=== PATIENT | female | born 1990 | race Caucasian/White ===

== ENCOUNTER 2016-06-20 20:47 | Inpatient (IN) | payer MEDICAID ==
--- NOTE | 2016-06-21 00:02 | OBADHP ---
Datetime: 06/20/2016 23:49 IP Chief Complaint Other: 25 year old P3 at 38 weeks Gestation presents complaining Admit Comment, IP Provider: Early active Labor. Non-compliant with care. Treated for Gonorr hea and Chlamydia this . Admit for labor protocol. Penicillin for GBS prophylaxis. Pelvic Type - PN: Adequate Extremities - PN: Normal Abdomen - PN: Normal Back - PN: Normal Breast - PN: Not Done Lungs - PN: Normal Heart - PN: Normal Thyroid - PN: Not Done Neurologic - PN: Not Done HEENT - PN: Not Done General - PN: Normal Weight - Estimated: 3000 Presentation-Admit: Vertex FHR - Baseline A Provider: 150 Membranes, Provider: Intact Contraction Comments Provider: Q 5min. Gestation - Est Wks by US: 38.0 IP Hx Assessment: The History has been Updated Vital Signs Provider: Reviewed; Within Normal Limits IP Chief Complaint: Uterine contractions NICHD Variability Prov Fetus A: Moderate 6-25bpm NICHD Accel Fetus A IP Provider: [id number] FHR Category Provider Fetus A: Category I NICHD Decel Fetus A IP Provider: None Dilatation, Provider: 3 Effacement, Provider: 50 Station, Provider: -2 Genitourinary Exam: Normal DTRs - PN: Normal EGA AdmitDate IP: 38.0 IP Adm Impression: Term, intrauterine ; Active labor; Intact Membranes IP Admit Plan: Admit to unit; Initiate labor protocol Datetime: 06/20/2016 21:08 IP Admit Plan Other: Reevaluate for Labor in 2 hours Datetime: 05/15/2016 19:49 Comments, ACOG Physical Exam: Skin: warm, dry, intact. (+) multiple tattooes on arms bilaterally HEENT: full rOM Back: no CVA nor low back tenderness. (+) pain in right gluteus - mid region. Lungs: CTA bilaterally Cardiac: RRR, normal S1, S2 Abdomen: gravid. Soft. No suprapubic tenderness : no urethral masses or dischare Extremities: no calf tenderness, cyanosis or edema all other systems reviewed and are as per HPI
[2016-06-21] MEDS ORDERED: Penicillin G 5 Million Unit Vial IVPB ONE ×2 (00:03→00:25)
[2016-06-21 00:04] VITALS: BMI 29.7
[2016-06-21] MEDS ORDERED: Lactated Ringer's 1,000 ML IV SCH ×2 (00:15→22:45)
[2016-06-21] MEDS ORDERED: Nalbuphine 20 mg/ml Inj (1 ml) IVP PRN ×2 (00:15→08:30)
[2016-06-21] MEDS ORDERED: Nalbuphine 20 mg/ml Inj (1 ml) ONE (00:34)
[2016-06-21 00:41] LABS: BASO # 0.1 K/uL (0.0-0.2); BASO % 0.7 % (0.0-2.0); EOS # 0.2 K/uL (0.0-0.7); EOS % 1.7 % (0.0-4.0); HEMATOCRIT 29.4 % (34.0-47.0); LYMPH # 3.1 K/uL (1.0-4.3); LYMPH % 26.3 % (20.0-40.0); MEAN CELL VOLUME 69.8 fL (81.0-99.0); MEAN CORPUSCULAR HEMOGLOBIN 21.9 pg (27.0-31.0); MEAN CORPUSCULAR HGB CONC 31.4 g/dL (33.0-37.0); MONO # 0.9 K/uL (0.0-0.8); MONO % 7.8 % (0.0-10.0); RED CELL DISTRIBUTION WIDTH 16.1 % (11.5-14.5); WHITE BLOOD COUNT 11.7 K/uL (4.8-10.8)
[2016-06-21 00:52] LABS: RBC URINE 2 /hpf (0-3); URINE BACTERIA OCC (<OCC); URINE BILIRUBIN NEGATIVE (NEGATIVE); URINE BLOOD NEGATIVE (NEGATIVE); URINE COLOR Yellow (YELLOW); URINE GLUCOSE (UA) NORMAL (Normal); URINE KETONE TRACE mg/dL (NEGATIVE); URINE LEUKOCYTE ESTERASE NEG Leu/uL (Negative); URINE PROTEIN 1+ mg/dL (NEGATIVE); URINE UROBILINOGEN NORMAL mg/dL (0.2-1.0); WBC URINE 2 /hpf (0-5)
[2016-06-21 00:53] LABS: GFR AFRICAN-AMERICAN > 60
[2016-06-21 00:54] LABS: GLUCOSE,RANDOM 99 mg/dL (65-105)
[2016-06-21] MEDS ORDERED: Oxytocin 30 UNIT 500 ML IV ONE (05:43)
[2016-06-21] MEDS ORDERED: Oxytocin 30 UNIT 500 ML IV SCH (05:45)
--- NOTE | 2016-06-21 05:49 | OBPN ---
Datetime: 06/21/2016 05:45 IP Progress Impression: Arrest of dilatation/descent; Reassuring heart rate IP Informed Consent Obtain: Vaginal Delivery; Risks, Benefits and Alternatives Discussed IP Procedures: Sterile Vag Exam IP Progress Plan: Augmentation; Antibiotic therapy Membranes, Provider: Intact Contraction Comments Provider: Q3-5min. FHR - Baseline A Provider: 140 Gestation - Est Wks by US: 38.0 Weight - Estimated: 3000 Presentation-Admit: Vertex IP Progress Note Comment: Protracted Latent Phase. Reassuring Status. Will augment Labor with Pitocin. Vital Signs Provider: Reviewed; Within Normal Limits FHR Category Provider Fetus A: Category I NICHD Variability Prov Fetus A: Moderate 6-25bpm Dilatation, Provider: 3 Effacement, Provider: 50 Station, Provider: -2 NICHD Decel Fetus A IP Provider: None Datetime: 06/20/2016 23:49 NICHD Accel Fetus A IP Provider: [id number]
--- NOTE | 2016-06-21 17:54 | OBPN ---
Datetime: 06/21/2016 17:47 IP Progress Impression: Reassuring heart rate IP Informed Consent Obtain: Vaginal Delivery; Risks, Benefits and Alternatives Discussed IP Procedures: Sterile Vag Exam IP Progress Plan: Augmentation; Anticipate Vaginal Delivery Membranes, Provider: Intact FHR - Baseline A Provider: 140 Gestation - Est Wks by US: 38.0 Weight - Estimated: 3000 Presentation-Admit: Transverse IP Progress Note Comment: Protracted Latent Phase. Continue augmentation . Anticipate Vital Signs Provider: Reviewed; Within Normal Limits FHR Category Provider Fetus A: Category I NICHD Variability Prov Fetus A: Moderate 6-25bpm Dilatation, Provider: 3 Effacement, Provider: 50 Station, Provider: -2 NICHD Decel Fetus A IP Provider: None
[2016-06-21] MEDS ORDERED: Sodium Citrate/Citric Acid 15 ml Sol PO ONE (20:59)
[2016-06-21] MEDS ORDERED: cefOXitin IV 2 gm in Dextrose 50 ML IVPB ONE ×2 (20:59→21:05)
[2016-06-21] MEDS ORDERED: Sodium Citrate/Citric Acid 15 ml Sol ONE (21:04)
--- NOTE | 2016-06-21 21:14 | OBPN ---
Datetime: 06/21/2016 21:07 IP Progress Impression: Arrest of dilatation/descent; Reassuring heart rate IP Informed Consent Obtain: Section Delivery; Risks, Benefits and Alternatives Discussed IP Procedures: Sterile Vag Exam IP Progress Plan: Deliver- Section Membranes, Provider: Intact FHR - Baseline A Provider: 150 Gestation - Est Wks by US: 38.0 Weight - Estimated: 3000 Presentation-Admit: Vertex IP Progress Note Comment: Protracted Latent Phasee. Reassuring Status. Option given to patient to go home but declined and requested Section. Risks of injuries to bowel, bladder and risk of subsequent repeat C/Sections discussed. Vital Signs Provider: Reviewed; Within Normal Limits FHR Category Provider Fetus A: Category I NICHD Variability Prov Fetus A: Moderate 6-25bpm Dilatation, Provider: 3 Effacement, Provider: 50 Station, Provider: -2 NICHD Decel Fetus A IP Provider: None
[2016-06-21] MEDS ORDERED: Oxytocin 10 Units/ml Inj ONE (21:36)
[2016-06-21] MEDS ORDERED: Morphine 1 mg/ml preservative-free Inj(Duramorph) ONE (21:39)
[2016-06-21] MEDS ORDERED: Morphine 4 MG/ML VIAL IVP PRN (22:22)
[2016-06-21] MEDS ORDERED: DiphenhydrAMINE 50 mg/ml Inj IVP PRN (22:24)
--- NOTE | 2016-06-21 22:53 | OBDS ---
DELIVERY PERSONNEL Delivery Doctor: Hiro Jesus MD Scrub Nurse: Lolita Barboza OBT Assembly Repairer: Elza Cabrera RN Anesthesiologist: May Allen MD MATERNAL INFORMATION Delivery Anesthesia: Spinal Medications in Delivery: PITOCIN Estimated Blood Loss (ml): 500 Maternal Complications: None RN Comments: LIVE BABY BOY 9/9 Provider Comments: Primary LTC/S with delivery of a viable boy, 's /9 LABOR SUMMARY EDC: 07/04/2016 00:00 No. Babies in Womb: 1 LABOR INFORMATION Cervical Ripening Agents: Cytotec @ 50 mcg Group B Beta Strep: Not Done STAGES OF LABOR Stage 3 hrs: 0 Stage 3 min: 1 VAGINAL DELIVERY Episiotomy: None Laceration Extension: N/A Laceration Type: None CSECTION DELIVERY Primary Indication: Arrest of Dilatation CSection Urgency: Elective CSection Incidence: Primary Labor: Labor Elective: Elective CSection Incision: Lower Uterine Transverse BABY A INFORMATION Infant Delivery Date/Time: 06/21/2016 22:02 Method of Delivery: Born in Route : No : N/A Forceps: N/A Vacuum Extraction: N/A Shoulder Dystocia : No SHOULDER DYSTOCIA BABY A Delivery Date/Time: 06/21/2016 22:02 PRESENTATION/POSITION BABY A Presentation: Cephalic Cephalic Presentation: Vertex Vertex Position: Left Occipital Anterior Breech Presentation: N/A PLACENTA INFORMATION BABY A Placenta Delivery Time : 06/21/2016 22:03 Placenta Method of Delivery: Manual Removal Placenta Status: Delivered SCORES BABY A Heart Rate 1 min: >100 bpm Resp Effort 1 min: Good Cry Reflex Irritability 1 min: Cough or Sneeze or Pulls Away Muscle Tone 1 min: Active Motion Color 1 min: Body [place], Extremities Blue Resuscitation Effort 1 min: Tactile Stimulation SCORE 1 MIN: 9 Heart Rate 5 min: >100 bpm Resp Effort 5 min: Good Cry Reflex Irritability 5 min: Cough or Sneeze or Pulls Away Muscle Tone 5 min: Active Motion Color 5 min: Body [place], Extremities Blue SCORE 5 MIN: 9 INFANT INFORMATION BABY A Gestational Age at Delivery: 38.1 Gestational Status: Term Outcome : Liveborn Condition : Stable Sex: Male IDENTIFICATION/MEDS BABY A ID Band Number: [id number] ID Band Location: Left Leg; Left Arm Sensor Applied: Yes Sensor Number: [id number] Sensor Location : Cord Clamp Vitamin K Given : Aquamephyton 1 mg IM; Left Thigh Erythromycin Given: Given Both Eyes WEIGHT/LENGTH BABY A Infant Birthweight (gms): 3145 Weight (lb): 6 Weight (oz): 15 Length Inches: 19.00 Infant Length cms: 48.3 CORD INFORMATION BABY A No. Cord Vessels: 3 Nuchal Cord : N/A Cord Blood Taken: Yes Infant Suction: Mouth; Nose ASSESSMENT BABY A Complications: None Physical Findings at Delivery: Within Normal Limits Infant Respirations: Appears Normal Svp/ALS Called : No Infant Care By: Dr Queen/CLAUDIO RN Transferred To: [facility]
--- NOTE | 2016-06-22 08:13 | OP ---
PROCEDURE DATE: 06/21/2016 PREOPERATIVE DIAGNOSES: A 38-week gestation, arrest of dilatation. POSTOPERATIVE DIAGNOSES: A 38-week gestation, arrest of dilatation. PROCEDURE: Primary low transverse section. SURGEON: Bryan Jesus MD. THEATRICAL VARIETY AGENT: Dr. Lorenzo who was required for retraction and assistance in delivery of the fetus and who was present throughout the entire procedure. ANESTHESIA: Spinal given by Dr. Allen. FINDINGS: A viable boy delivered at 22:02. scores were 9 at 1 minute and 9 at 5 minutes. The weight was 3145 grams. The ovaries, fallopian tubes, and uterus were all normal. DESCRIPTION OF PROCEDURE: Under adequate spinal anesthesia, a Pfannenstiel skin incision was made with a scalpel and carried through the subcutaneous tissues to the fascia. The fascia was divided transversely and dissected off the underlying rectus muscle. The rectus muscle was in the midline. The retroperitoneum was entered sharply, and the abdomen was entered. The bladder was retracted using a Coyote retractor. The lower segment was incised with a scalpel and extended with bandage scissors. The fetus was delivered cephalic. The cord was clamped, transected, and the baby handed over to the program manager slp in attendance. The placenta was delivered spontaneously. The uterus was then delivered into the incision. The uterine cavity was cleaned of all debris with laparotomy sponges. The uterine incision was grasped with T clamps for hemostasis. The uterine incision was then approximated with 0 Vicryl suture in 2 layers. Hemostasis was achieved. The abdomen was then copiously irrigated with saline. The uterus was then returned into the abdominal cavity. Again, hemostasis was noted. The parietoperitoneum was then approximated with 0 chromic catgut. The fascia was approximated with 0 Vicryl suture in a continuous fashion. The subcutaneous tissues were approximated with 2-0 plain catgut. The skin was closed using 4-0 Biosyn subcuticular suture. ESTIMATED BLOOD LOSS: The estimated blood loss was about 500 mL. FLUIDS: Fluids received were 1500 mL crystallized. The urine output was about 300 clear. The sponge, instrument, and needle counts were correct x 3. The patient was transferred from the operating room to the recovery room in good condition. Bryan Jesus MD cc: [id number] TT: 06/22/2016 08:13:15 jn MTDD
[2016-06-22 08:15] LABS: HEMATOCRIT 26.6 % (34.0-47.0); MEAN CELL VOLUME 69.6 fL (81.0-99.0); MEAN CORPUSCULAR HEMOGLOBIN 21.9 pg (27.0-31.0); MEAN CORPUSCULAR HGB CONC 31.4 g/dL (33.0-37.0); MEAN PLATELET VOLUME 8.8 fL (7.2-11.7); RED CELL DISTRIBUTION WIDTH 15.9 % (11.5-14.5); WHITE BLOOD COUNT 13.5 K/uL (4.8-10.8)
[2016-06-22] MEDS: Prenatal Multivit/Folic Acid/Iron Tab PO SCH (10:30)
[2016-06-22] MEDS: Enoxaparin 40 mg Syringe SC SCH (10:31)
[2016-06-22] MEDS: Simethicone 80 mg Chewtab PO SCH ×4 (10:31→21:43)
[2016-06-22] MEDS: Oxycodone/Acetaminophen 5/325 mg Tab PO PRN ×3 (12:19→23:20)
[2016-06-22] MEDS ORDERED: Bisacodyl 5mg EC Tab PO ONE ×2 (22:00→22:45)
[2016-06-23] MEDS: Oxycodone/Acetaminophen 5/325 mg Tab PO PRN ×3 (07:24→19:39)
[2016-06-23] MEDS: Enoxaparin 40 mg Syringe SC SCH (09:13)
[2016-06-23] MEDS: Simethicone 80 mg Chewtab PO SCH ×4 (09:15→21:55)
[2016-06-23] MEDS: Prenatal Multivit/Folic Acid/Iron Tab PO SCH (09:15)
[2016-06-23 16:04] VITALS: RESP 20; O2SAT 99
[2016-06-24 00:03] VITALS: BP 103/67; PULSE 73; TEMP 98.3
[2016-06-24] MEDS: Oxycodone/Acetaminophen 5/325 mg Tab PO PRN ×2 (02:53→08:58)
[2016-06-24] MEDS: Enoxaparin 40 mg Syringe SC SCH (09:07)
[2016-06-24] MEDS: Simethicone 80 mg Chewtab PO SCH (09:07)
[2016-06-24] MEDS: Prenatal Multivit/Folic Acid/Iron Tab PO SCH (09:08)
--- NOTE | 2016-06-24 10:09 | OBPPN ---
Datetime: 06/24/2016 10:06 PP Pain Prov: Within normal limits PP Pain Prov comment: Well PP Nausea Prov: Denies PP Flatus Prov: Yes PP BM Prov: Yes PP Breasts Prov: Normal PP Heart Prov: Normal PP Lungs Prov: Normal PP Abdomen/Uterus Prov: Normal PP Lochia Prov: Normal PP Vulva/Perineum Prov: Normal PP CVA Tenderness Prov: Normal PP Extremities Prov: Normal PP Comments Phys Exam Prov: Abdomen soft, nontender. Incision C/D/I. Good bowel sounds. PP Impression Prov: Normal progression PP Plan Prov: Discharge PP Progress Note Prov: Stable. Discharge home. Follow up in 2 weeks. IP PP Procedures: None Vital Signs Provider PP: Reviewed; Within Normal Limits Vital Signs Provider Details PP: HgB 8.4 Datetime: 06/23/2016 08:26 PP C/S Incision Prov: Normal PP Progress Prov: Normal
--- NOTE | 2016-06-24 10:11 | OBDCSUM ---
Datetime: 06/24/2016 10:08 Disch Instr Activity: May be up to bathroom; May be up for meals; May Shower Disch Instr Diet: Regular Discharge Instructions, Provider: Specific instructions as noted Discharge Diagnosis, Provider: Term Delivered Discharge Time: 06/24/2016 10:08 Disch Activity Restrictions: No exercising; No lifting; No driving; Minimize walking; Minimize stair -climbing; No sexual activity; Nothing in vagina - [place], tampons, douche Discharge Diagnosis Prov Other: Protracted Latent Phase of Labor
== END 2016-06-24 13:15 | disposition home or self-care (01) ==
LOC: C.EROB 20:47 → C.4D 06-21 00:02 → C.4M 06-22 01:26
PROVIDERS: ADMIT Obstetrics & Gynecology; ATTEND Obstetrics & Gynecology
PROC: 10D00Z1 Extraction of Products of Conception, Low, Open Approach (ICD-10-PCS; principal; 2016-06-21)
DX: O62.0 Primary inadequate contractions (principal); O98.22 Gonorrhea complicating childbirth; O98.82 Other maternal infectious and parasitic diseases complicating childbirth; O63.0 Prolonged first stage (of labor); Z3A.38 38 weeks gestation of pregnancy; Z37.0 Single live birth; Z91.19 Patient's noncompliance with other medical treatment and regimen